=== PATIENT | female | born 1980 | race Caucasian/White ===

== ENCOUNTER 2016-03-12 09:23 | Emergency (ER) | payer BC ==
[~2016-03-12] VITALS: Ht 167.6 cm; Wt 50.0 kg
[~2016-03-12 09:23] MED LIST: DOXY100T PO; LORT5TAB PO; Z.0.NO CURRENT MEDS
[2016-03-12 09:27] VITALS: BP 164/123; PULSE 105; RESP 17; TEMP 98; O2SAT 97
[2016-03-12] MEDS ORDERED: CLON0.2T PO (09:44)
[2016-03-12 09:48] VITALS: BP 162/116; PULSE 74; RESP 24; O2SAT 96
[2016-03-12] MEDS ORDERED: SODIUM CHLOR 0.9% 1000 ML INJ 1,000 ML IV SCH (10:26)
--- NOTE | 2016-03-12 10:29 | PD ---
HPI Chief Complaint: Medical Clearance Time Seen by Provider: 10:26 Travel History International Travel<30 days: No Contact w/Intl Traveler<30days: No Traveled to known affect area: No History of Present Illness HPI 36-year-old female with history of endometriosis, on opiate pain medications managed by pain management where she is living in [place], is visiting her parents currently in [place] and states that she has been trying to withdrawal on her opiate pain medication, oxycodone, and she has had several days of nausea , vomiting, diarrhea, body aches and pains. She is post to return to [place] tomorrow. Modifying Factors: None Associated Signs & Symptoms: Body aches and pains, nausea, vomiting, opiate withdrawals Risk Factors: Trying to withdrawal from opiates PFSH Past Medical History Diminished Hearing: No Hypertension: Yes ?: Not LMP: 3 weeks ago : 1 Para: 1 Past Surgical History Abdominal Surgery: Yes (ENDOMETRIOSIS ) Social History Alcohol Use: Yes (bottle of wine daily) Tobacco Use: No (chews tobacco) Substance Use: No Allergies-Medications (Allergen,Severity, Reaction): Coded Allergies: Keflex (Verified Allergy, Severe, Hives, 03/12/16) Latex (Verified Allergy, Severe, Hives, 03/12/16) Reported Meds & Prescriptions Reported Meds & Active Scripts Active Reported Clonidine (Clonidine HCl) 0.2 Mg Tab 0.2 Mg PO TID Review of Systems Except as stated in HPI: all other systems reviewed are Neg Physical Exam Narrative GENERAL: Well-nourished, well-developed young white female patient in no acute distress. SKIN: Warm and dry. HEAD: Normocephalic. EYES: No scleral icterus. No injection or drainage. NECK: Supple, trachea midline. CARDIOVASCULAR: Regular rate and rhythm without murmurs, gallops, or rubs. RESPIRATORY: Breath sounds equal bilaterally. No accessory muscle use. GASTROINTESTINAL: Abdomen soft, non-tender, nondistended. MUSCULOSKELETAL: No cyanosis, or edema. BACK: Nontender without obvious deformity. No CVA tenderness. Data Data Last Documented VS Vital Signs Date Time Temp Pulse Resp B/P Pulse Ox O2 Delivery O2 Flow Rate FiO2 03/12/16 13:04 76 22 118/87 96 Room Air 03/12/16 09:27 98.0 Orders Complete Blood Count With Diff (03/12/16 10:26) Comprehensive Metabolic Panel (03/12/16 10:26) Lipase (03/12/16 10:26) Iv Access Insert/Monitor (03/12/16 10:26) Ecg Monitoring (03/12/16 10:26) Oximetry (03/12/16 10:26) Ondansetron Inj (Zofran Inj) (03/12/16 10:30) Sodium Chlor 0.9% 1000 Ml Inj (Ns 1000 M (03/12/16 10:26) Sodium Chloride 0.9% Flush (Ns Flush) (03/12/16 10:30) Ed Urine Pregnancytest Poc (03/12/16 10:26) Clonidine (Catapres) (03/12/16 11:00) Ct Abd/Pel W Iv Contrast(Rout) (03/12/16 11:47) Iohexol 350 Inj (Omnipaque 350 Inj) (03/12/16 12:34) Labs Laboratory Tests Test 03/12/16 10:15 White Blood Count 6.1 TH/MM3 Red Blood Count 4.18 MIL/MM3 Hemoglobin 14.9 GM/DL Hematocrit 43.7 % Mean Corpuscular Volume 104.6 FL Mean Corpuscular Hemoglobin 35.6 PG Mean Corpuscular Hemoglobin 34.0 % Concent Red Cell Distribution Width 13.6 % Platelet Count 193 TH/MM3 Mean Platelet Volume 8.0 FL Neutrophils (%) (Auto) 45.5 % Lymphocytes (%) (Auto) 43.6 % Monocytes (%) (Auto) 8.9 % Eosinophils (%) (Auto) 0.7 % Basophils (%) (Auto) 1.3 % Neutrophils # (Auto) 2.8 TH/MM3 Lymphocytes # (Auto) 2.6 TH/MM3 Monocytes # (Auto) 0.5 TH/MM3 Eosinophils # (Auto) 0.0 TH/MM3 Basophils # (Auto) 0.1 TH/MM3 CBC Comment DIFF FINAL Differential Comment Sodium Level 142 MEQ/L Potassium Level 3.7 MEQ/L Chloride Level 103 MEQ/L Carbon Dioxide Level 23.2 MEQ/L Anion Gap 16 MEQ/L Blood Urea Nitrogen 6 MG/DL Creatinine 0.64 MG/DL Estimat Glomerular Filtration 106 ML/MIN Rate Random Glucose 97 MG/DL Calcium Level 9.4 MG/DL Total Bilirubin 0.8 MG/DL Aspartate Amino Transf 412 U/L (AST/SGOT) Alanine Aminotransferase 150 U/L (ALT/SGPT) Alkaline Phosphatase 106 U/L Total Protein 8.1 GM/DL Albumin 4.6 GM/DL Lipase 740 U/L MDM Medical Decision Making Medical Screen Exam Complete: Yes Emergency Medical Condition: Yes Medical Record Reviewed: Yes Interpretation(s) Laboratory Tests Test 03/12/16 10:15 Mean Corpuscular Volume 104.6 FL (80.0-100.0) Mean Corpuscular Hemoglobin 35.6 PG (27.0-34.0) Monocytes (%) (Auto) 8.9 % (0.0-8.0) Anion Gap 16 MEQ/L (5-15) Blood Urea Nitrogen 6 MG/DL (7-18) Aspartate Amino Transf 412 U/L (15-37) (AST/SGOT) Alanine Aminotransferase 150 U/L (10-53) (ALT/SGPT) Lipase 740 U/L (73-393) Last 24 hours Impressions Abdomen/Pelvis CT 03/12/16 1147 Signed Impressions: Service Date/Time: Thursday, March 12, 2016 12:29 - CONCLUSION: Hypodense liver characteristic of steatosis. Otherwise unremarkable exam without evidence of acute process. Hussein Avelar MD Differential Diagnosis Nausea, vomiting, diarrhea, withdrawalrule out dehydration versus metabolic issues Narrative Course Abdomen is fairly benign. Lab work shows significant lipase elevation in mild liver enzyme elevations. On further questioning, patient admits that she does drink daily alcohol. Her CT did not show any signs of acute intra-abdominal processes. At this point, patient had been given IV fluids, nausea medication, and clonidine in the ER. My plan would be to release her with further symptomatic relief or nausea and vomiting and traveled all for pain. She will need to follow-up with primary care physician. She will need to go on a liquid diet. She needs to avoid alcohol. Return for any worsening in symptoms as necessary. The plan was discussed with her and she states understanding. Diagnosis Primary Impression: ALCOHOL INDUCED ACUTE PANCREATITIS WITHOUT NECROSIS OR INFCT Med/Other Pt SpecificInfo: Prescription(s) given Scripts Ondansetron Odt (Zofran Odt)4 Mg Tab4 Mg SL Q6HR PRN (Nausea/Vomiting) #10 TAB Ref 0 Prov:Gigi Shaw MD 03/12/16 Tramadol 50 Mg Tab50 Mg PO Q4H PRN (PAIN) #20 TAB Ref 0 Prov:Gigi Shaw MD 03/12/16 Disposition: 01 DISCHARGE HOME Condition: Stable Gigi Shaw MD Mar 12, 2016 10:29
[2016-03-12] MEDS ORDERED: SODIUM CHLORIDE 0.9% FLUSH 5 ML FLUSH IVF PRN (10:30)
[2016-03-12] MEDS ORDERED: ONDANSETRON HCL 4 MG/2 ML VIAL IVP ONE (10:30)
[2016-03-12 10:31] VITALS: O2SAT 97
[2016-03-12 10:47] VITALS: BP 162/110; PULSE 66; RESP 24; O2SAT 97
[2016-03-12] MEDS ORDERED: cloNIDine HCL 0.2 MG TAB PO ONE (11:00)
[2016-03-12 11:08] LABS: AUTOMATED NEUTROPHIL # 2.8 TH/MM3 (1.8-7.7); BASOPHIL # 0.1 TH/MM3 (0-0.2); BASOPHIL % 1.3 % (0.0-2.0); EOSINOPHIL % 0.7 % (0.0-4.0); HEMATOCRIT 43.7 % (35.0-46.0); HEMO FLAGS DIFF FINAL; LYMPH % 43.6 % (9.0-44.0); LYMPHOCYTE # 2.6 TH/MM3 (1.0-4.8); MEAN CELL VOLUME 104.6 FL (80.0-100.0); MEAN CORPUSCULAR HEMOGLOBIN 35.6 PG (27.0-34.0); MONO % 8.9 % (0.0-8.0); NEUT % 45.5 % (16.0-70.0); PLATELET COUNT 193 TH/MM3 (150-450); RED BLOOD COUNT 4.18 MIL/MM3 (4.00-5.30); RED CELL DISTRIBUTION WIDTH 13.6 % (11.6-17.2); WHITE BLOOD COUNT 6.1 TH/MM3 (4.0-11.0)
[2016-03-12 11:38] LABS: ANION GAP 16 MEQ/L (5-15); AST (GOT) 412 U/L (15-37); BICARBONATE 23.2 MEQ/L (21.0-32.0); BLOOD UREA NITROGEN 6 MG/DL (7-18); CHLORIDE 103 MEQ/L (98-107); GLOMERULAR FILTRATION RATE 106 ML/MIN (>89); POTASSIUM 3.7 MEQ/L (3.5-5.1); SODIUM (NA) 142 MEQ/L (136-145)
[2016-03-12 11:41] VITALS: BP 143/103; PULSE 97; RESP 24; O2SAT 98
[2016-03-12 11:42] LABS: ALKALINE PHOSPHATASE 106 U/L (45-117); ALT (GPT) 150 U/L (10-53); TOTAL BILIRUBIN ADULT 0.8 MG/DL (0.2-1.0)
[2016-03-12] MEDS ORDERED: IOHEXOL 350 MG/ML 10 ML VIAL (for RAD DIAG) IV ONE (12:34)
--- NOTE | 2016-03-12 13:01 | RADRPT ---
EXAM DATE/TIME: 03/12/2016 12:29 [facility] COMPARISON: No previous studies available for comparison. INDICATIONS : Generalized abdominal pain IV CONTRAST: 71 cc Omnipaque 350 (iohexol) IV ORAL CONTRAST: No oral contrast ingested. RADIATION DOSE: 4.5 CTDIvol (mGy) MEDICAL HISTORY : Hypertension. SURGICAL HISTORY : None. ENCOUNTER: Initial ACUITY: 1 day PAIN SCALE: 10/10 LOCATION: diffuse abdomen TECHNIQUE: Volumetric scanning of the abdomen and pelvis was performed. Using automated exposure control and ad justment of the mA and/or kV according to patient size, radiation dose was kept as low as reasonably achievable to obtain optimal diagnostic quality images. FINDINGS: LOWER LUNGS: The visualized lower lungs are clear. LIVER: The liver is diffusely hypodense. There is no evidence of biliary duct dilatation or space-occupying lesions. Gallbladder is in place. There is no evidence of cholelithiasis. SPLEEN: Normal size without lesion. PANCREAS: Within normal limits. KIDNEYS: Normal in size and shape. There is no mass, stone or hydronephrosis. ADRENAL GLANDS: Within normal limits. VASCULAR: There is no aortic aneurysm. BOWEL/MESENTERY: The stomach, small bowel, and colon demonstrate no acute abnormality. There is no free intraperitone al air or fluid. ABDOMINAL WALL: Within normal limits. RETROPERITONEUM: There is no lymphadenopathy. BLADDER: No wall thickening or mass. REPRODUCTIVE: Within normal limits. INGUINAL: There is no lymphadenopathy or hernia. MUSCULOSKELETAL: Within normal limits for patient age. CONCLUSION: Hypodense liver characteristic of steatosis. Otherwise unremarkable exam without evidence of acute process. Hussein Avelar MD on March 12, 2016 at 12:55 Board Certified Radiologist. This report was verified electronically.
[2016-03-12 13:04] VITALS: BP 118/87; PULSE 76; RESP 22; O2SAT 96
[2016-03-12] MEDS ORDERED: ZOFR4TAB3 SL (13:10)
[2016-03-12] MEDS ORDERED: TRAM50TA PO (13:10)
== END 2016-03-12 14:15 | disposition home or self-care (01) ==
LOC: NEPC 09:23
DX: K85.20 Alcohol induced acute pancreatitis without necrosis or infection (principal)
CPT/HCPCS: 74177; 80053; 83690; 84703; 85025; 96361; 96374; 99284; J2405; J7030; Q9967